=== PATIENT | female | born 1990 | race Caucasian/White ===

== ENCOUNTER 2022-02-06 10:41 | Emergency (ER) | payer MEDICAID ==
[~2022-02-06] VITALS: Ht 152.4 cm; Wt 42.0 kg
[2022-02-06] MEDS ORDERED: birth control PO (10:46)
[2022-02-06 12:26] LABS: BASOPHILS % (AUTO) 0.4 % (0.0-2.0); HEMATOCRIT 40.1 % (36-46); HEMOGLOBIN 13.5 g/dL (12.0-16.0); LYMPHOCYTES # (AUTO) 2.4 K/uL (1.0-4.8); LYMPHOCYTES % (AUTO) 25.6 % (22.0-44.0); MEAN CORPUSCULAR HEMOGLOBIN 30.4 pg (26.0-34.0); MEAN CORPUSCULAR HGB CONC 33.7 G/dL (31.0-37.0); MEAN CORPUSCULAR VOLUME 90 fL (80-100); MONOCYTES # (AUTO) 0.6 K/uL (0.1-1.0); MONOCYTES % (AUTO) 6.7 % (2.0-9.0); NEUTROPHILS % (AUTO) 65.3 % (40.0-70.0); PLATELET COUNT (AUTO) 266 K/uL (150-450); RED BLOOD CELL COUNT(AUTO) 4.43 MIL/uL (4.00-5.20); RED CELL DISTRIBUTION WIDTH 12.7 % (11.5-14.5)
[2022-02-06] MEDS ORDERED: ACETAMINOPHEN 500 MG TABLET PO ONE (12:30)
[2022-02-06] MEDS ORDERED: KETOROLAC TROMETHAMINE 60 MG/2 ML VIAL IM ONE (12:30)
[2022-02-06 12:46] LABS: ANION GAP 5 mmol/L (8-16); CALCIUM, TOTAL 8.4 mg/dL (8.8-10.5); CARBON DIOXIDE 29 mmol/L (22-29); CHLORIDE 106 mmol/L (98-107); CREATININE 0.54 mg/dL (0.60-1.30); GLUCOSE,RANDOM 94 mg/dL (70-110); POTASSIUM 3.8 mmol/L (3.5-5.1); SODIUM SERUM 140 mmol/L (136-145); UREA NITROGEN, BLOOD 8 mg/dL (7-18)
[2022-02-06 12:48] LABS: GLOMERULAR FILTR. RATE CALC > 60 mL/min (>60)
[2022-02-06 13:12] VITALS: BP 103/60
[2022-02-06] MEDS ORDERED: ACET-66 PO (13:57)
[2022-02-06] MEDS ORDERED: IBUP-1554 PO (13:57)
== END 2022-02-06 14:04 | disposition home or self-care (01) ==
LOC: EMS 10:41
DX: R51.9 Headache, unspecified (principal); K08.89 Other specified disorders of teeth and supporting structures
CPT/HCPCS: 36415; 80048; 84703; 85025; 96372; 99283; J1885

== ENCOUNTER 2022-08-05 19:19 | Emergency (ER) | payer MEDICAID ==
[~2022-08-05] VITALS: Ht 154.9 cm; Wt 65.9 kg
[~2022-08-05 19:19] MED LIST: ACET-66 PO; IBUP-1554 PO; birth control PO
[2022-08-05 19:25] VITALS: BP 130/75
[2022-08-05] MEDS ORDERED: PREN-217 PO (19:28)
== END 2022-08-05 22:43 | disposition left against medical advice (07) ==
LOC: EMS 19:20
DX: Z53.21 Procedure and treatment not carried out due to patient leaving prior to being seen by health care provider (principal)